=== PATIENT | male | born 1985 ===

== ENCOUNTER 2024-06-17 09:26 | Outpatient (REF) | payer OTHER, SELFPAY ==
--- NOTE | ~2024-06-17 | XR_ITS ---
EXAMINATION: XR RIBS, RIGHT CLINICAL INFORMATION: R07.1 - Chest pain on breathing COMPARISON: None available. TECHNIQUE: 3 views of the right ribs were obtained. FINDINGS: Lungs are clear. No consolidation, pneumothorax, or pleural effusion. The cardiomediastinal silhouette and pulmonary vasculature are normal. Osseous structures are unremarkable. Ribs are intact. No fractures are identified. Incidental note made of a 6 mm calcification overlying the superior right renal pole. XR/XR ribs RT min 3V w CXR1V IMPRESSION: 1. Lungs are clear. There are no rib abnormalities or fractures. 2. 6 mm right renal calculus. Electronically signed by: Amrit Shaw MD 06/17/2024 11:13 AM CANDICE
== END 2024-06-17 09:27 | disposition home or self-care (01) ==
LOC: HO.HMGCX 09:26
PROVIDERS: Visit Provider Physician Assistant
DX: R07.1 Chest pain on breathing (principal)
CPT/HCPCS: 71101

== ENCOUNTER 2024-06-17 09:26 | Outpatient (AMB) | payer OTHER, SELFPAY ==
--- NOTE | 2024-06-17 10:10 | AM.OFFWIN_ITS ---
Intake Vital Signs 06/17/24 10:22 Height 5 ft 5 in BMI Reason not done Patient refused/unable BP 120/78 Blood Pressure Location Lt brachial Position Sitting Pulse 78 Pulse Source Pulse Oximeter Temp 98.6 F Temp Source Oral Pulse Oximetry (%) 98 Intake Visit Reasons: [employer] Cough, discomfort in rt breast/pulled muscle? Patient Tobacco Use Status: Never used Tobacco Allergies No Known Allergies Allergy (Verified 06/17/24 10:22) Do you need a note to return to daycare/school/sports/work: No HPI HPI Comments History of Present Illness Details History of Present Illness - The patient is a 38-year-old male pres enting with persistent cough and rib pain. - The symptoms commenced approximately 2 weeks prior, starting with a cough and cold, leading to rib pain that intensifies during deep breathing and physical activity. - Localized pain is reported at the righ t anterior breast, worsening upon palpation and certain physical maneuvers. - There is no accompanying shortness of breath, fever, or ongoing cough, though the patient expressed concern regarding potential COVID-19. Physical Exam General: Cooperative, healthy appearing, comfortable, no acute distress and well developed Orientation: Patient oriented x3 Limitations: No limitations Head: Normal to inspection Ears: Hearing grossly normal bilaterally Nose: Normal external nose present Face and sinus: Normal facial exam Eyes: Appearance normal, both eyes and all related structures Neck: Normal visual inspection and Yes full ROM Chest: TTP around T5 anterior midclavicular line Respiratory: Normal respiratory effort and able to speak in complete sentences. Clear to auscultation bilaterally Cardiovascular: Regular rate and rhythm. Normal S1 and S2 Skin: No rashes or lesions noted Neuro: Patient oriented x3 Extremities: Normal to inspection [facility], [facility] Social History Patient Tobacco Use Status: Never used Tobacco Review of Systems Const All systems reviewed & are unremarkable except as noted in HPI and below Physical Exam Vital Signs: Last Vital Signs Temp 98.6 F 06/17/24 10:22 Pulse 78 06/17/24 10:22 BP 120/78 06/17/24 10:22 Pulse Ox 98 06/17/24 10:22 Assessment & Plan Assessment & Plan (1) Inspiratory pain: Code(s): R07.1 - Chest pain on breathing Plan: Plan Rib pain is potentially due to a musculoskeletal strain from coughing. X-rays of the ribs and chest are planned to exclude fractures. If imaging shows no fractures, conservative measures such as rest, pain relief, and monitoring will be implemented. A chest X-ray is necessary to evaluate potential pulmonary issues. Symptomatic management is anticipated, with instructions to observe for further symptom development. Plan Patient was informed and verbally consented to the use of an ambient scribe for clinic note documentation during this visit. Orders: Orders XR ribs RT min 3V w CXR1V Today R07.1 - Chest pain on breathing Coding Level of Care Code New Pt Level 4 (10343) Diagnoses Inspiratory pain R07.1
[2024-06-17 10:22] VITALS: BP 120/78; PULSE 78; TEMP 37; O2SAT 98
== END 2024-06-17 10:41 | disposition home or self-care (01) ==
PROVIDERS: Visit Provider Physician Assistant
DX: R07.1 Chest pain on breathing (principal)

== ENCOUNTER → 2024-06-17 10:35 | Outpatient (BNV) | payer OTHER, SELFPAY | PROVIDERS: Visit Provider Radiology Diagnostic Radiology | DX: R07.1 Chest pain on breathing (principal); N20.0 Calculus of kidney | CPT/HCPCS: 71101 ==